=== PATIENT | female | born 1985 | race Caucasian/White ===

== ENCOUNTER 2022-02-27 11:10 | Emergency (ER) | payer OTHER ==
[2022-02-27 11:15] VITALS: TEMP 98.2
--- NOTE | 2022-02-27 12:12 | US ---
EXAMINATION TYPE: US venous doppler duplex LE LT DATE OF EXAM: 02/27/2022 12:01 PM COMPARISON: NONE CLINICAL HISTORY: Pain. Left calf pain and swelling SIDE PERFORMED: Left TECHNIQUE: The lower extremity deep venous system is examined utilizing real time linear array sonog sylvia with graded compression, doppler sonography and color-flow sonography. VESSELS IMAGED: Common Femoral Vein Deep Femoral Vein Greater Saphenous Vein * Femoral Vein Popliteal Vein Small Saphenous Vein * Proximal Calf Veins (* superficial vessels) Grayscale, color doppler, spectral doppler imaging performed of the deep veins of the lower extremiti es. There is normal flow, compressibility, vascular waveforms. Left Leg: Appears negative for DVT IMPRESSION: No evidence of deep vein thrombosis of the left lower extremity.
--- NOTE | 2022-02-27 12:45 | ED ---
Lower Extremity Injury HPI - General Chief Complaint: Extremity Injury, Lower Stated Complaint: r/o DVT Time Seen by Provider: 02/27/22 11:57 Source: patient, RN notes reviewed Mode of arrival: ambulatory Limitations: no limitations - History of Present Illness Initial Comments: 37-year-old female presents emergency department for evaluation of left leg swelling. Patient sent here from [address] DVT. Patient states that she had knee surgery recommend August for a cell repair. Patient states that she noticed some swelling minimal discomfort no chest pain or shortness breath no history DVT. Denies any trauma. - Related Data Allergies Allergy/AdvReac Type Severity Reaction Status Date / Time morphine Allergy Anaphylaxis Verified 02/27/22 11:15 Review of Systems ROS Statement: Those systems with pertinent positive or pertinent negative responses have been documented in the HPI. ROS Other: All systems not noted in ROS Statement are negative. Past Medical History Past Medical History: No Reported History History of Any Multi-Drug Resistant Organisms: None Reported Past Surgical History: Orthopedic Surgery Additional Past Surgical History / Comment(s): Back 2009, Past Psychological History: No Psychological Hx Reported Smoking Status: Current every day smoker Past Alcohol Use History: Abuse Past Drug Use History: None Reported General Exam Limitations: no limitations General appearance: alert, in no apparent distress Head exam: Present: atraumatic, normocephalic, normal inspection Eye exam: Present: normal appearance, PERRL, EOMI. Absent: scleral icterus, conjunctival injection, periorbital swelling ENT exam: Present: normal exam, normal oropharynx, mucous membranes moist Neck exam: Present: normal inspection, full ROM. Absent: tenderness, meningismus, lymphadenopathy Respiratory exam: Present: normal lung sounds bilaterally. Absent: respiratory distress, wheezes, rales, rhonchi, stridor Cardiovascular Exam: Present: regular rate, normal rhythm, normal heart sounds. Absent: systolic murmur, diastolic murmur, rubs, gallop, clicks Extremities exam: Present: other (Minimal left leg swelling, neurovascular intact pedal pulses equal bilaterally there is no Tenderness full range of motion) Course Vital Signs 02/27/22 11:12 Temperature 98.2 F Pulse Rate 73 Respiratory 20 Rate Blood Pressure 142/87 O2 Sat by Pulse 100 Oximetry Medical Decision Making - Medical Decision Making NEGATIVE FOR ACUTE DVT, PULSES ARE EQUAL, THERE IS NO SIGNS OF INFECTION. PATIENT DISCHARGED IN STABLE CONDITION RETURN PARAMETERS WERE DISCUSSED. Disposition Clinical Impression: Left leg swelling Disposition: HOME SELF-CARE Condition: Stable Instructions (If sedation given, give patient instructions): Leg Edema (ED) Additional Instructions: Please return to the Emergency Department if symptoms worsen or any other concerns. Is patient prescribed a controlled substance at d/c from ED?: No Referrals: Chris Medrano MD [Primary Care Provider] - 1-2 days Time of Disposition: 12:45
[2022-02-27 13:13] VITALS: BP 148/79; PULSE 74; RESP 18
== END 2022-02-27 13:13 | disposition home or self-care (01) ==
LOC: EC 11:10
DX: R22.42 Localized swelling, mass and lump, left lower limb (principal); F17.200 Nicotine dependence, unspecified, uncomplicated; Z88.6 Allergy status to analgesic agent
CPT/HCPCS: 99283